=== PATIENT | female | born 1950 | race Caucasian/White ===

== ENCOUNTER 2019-06-13 12:15 | Emergency (ER) | payer OTHER ==
[~2019-06-13] VITALS: Ht 162.6 cm; Wt 74.8 kg
[2019-06-13 12:15] VITALS: BP_SYST 142
--- NOTE | 2019-06-13 12:20 | NUR ---
BROUGHT IN BY [facility], PLACED IN BED #5 AND TRIAGED. REPORT GIVEN TO CARO
--- NOTE | 2019-06-13 12:40 | NUR ---
Patient to ER bed 05 to gown for evaluation. Side rails up.
--- NOTE | 2019-06-13 12:40 | NUR ---
Concha pineda in [facility] - 06/13/19 at 1349 by SDEDTD Patient in Radiology.
--- NOTE | 2019-06-13 12:41 | NUR ---
ER Dr. Medina at bedside examining patient.
--- NOTE | 2019-06-13 12:42 | NUR ---
Patient in Radiology.
--- NOTE | 2019-06-13 12:55 | NUR ---
Patient presented to ER C/O Left ankle and Right knee pain. Patient A&ox4, BIB BLS skin pink and warm, cap refil <3, denies N/V/D, pain 5/10, right knee swelling, pulses present bilat . Patient states she slipped on a banana peel in [facility] parking lot, causing pain to right knee and left ankle.
[2019-06-13] MEDS ORDERED: IBUPROFEN 600 MG TABLET PO ONE (15:15)
[2019-06-13] MEDS ORDERED: HYDROcodone/ACETAMIN 5-325 MG TAB (NORCO/ VICODIN) PO ONE (15:15)
[2019-06-13 16:52] VITALS: BP_SYST 140
--- NOTE | 2019-06-13 16:54 | NUR ---
Patient given written and verbal discharge instructions and verbalizes understanding. ER MD discussed with patient the results and treatment provided. Patient in stable condition. ID arm band removed. Rx of [place] & motrin given. Patient educated on pain management and to follow up with PMD. Pain Scale5/10 tolerable for PT . Opportunity for questions provided and answered. Medication side effect fact sheet provided.
--- NOTE | 2019-06-13 18:26 | NUR ---
Patient picked up by ride
== END 2019-06-13 18:26 | disposition home or self-care (01) ==
LOC: SED 12:15
DX: S82.001A Unspecified fracture of right patella, initial encounter for closed fracture (principal); W18.31XA Fall on same level due to stepping on an object, initial encounter; Y93.89 Activity, other specified; Y92.89 Other specified places as the place of occurrence of the external cause; Y99.8 Other external cause status
CPT/HCPCS: 73700-TC; 99284